=== PATIENT | male | born 1970 | race Caucasian/White ===

== ENCOUNTER → 2017-04-15 | Outpatient (CLI) | payer OTHER ==
[~2017-04-15] MED LIST: ADVIN25/60 INH; ALBUAER2 INH; AMIT10TA6 PO; ASCO-63 PO; CHOL2000 PO; GABA-113 PO; HYDR-5688 PO; MULT-506 PO; OMEG120013 PO; VITA400C15 PO
== END | disposition home or self-care (01) ==
LOC: C.LAB 16:00
DX: Z02.83 Encounter for blood-alcohol and blood-drug test (principal)